=== PATIENT | female | born 1950 | race Caucasian/White ===

== ENCOUNTER → 2017-05-31 | Outpatient (CLI) | payer OTHER ==
[~2017-05-31] MED LIST: ASPIRIN PO; BENAZEPRIL PO; CELEXA; CELEXA PO; DARVOCET-N 1001 TAB PO; IMITREX; LEXAPRO PO; LIPITOR PO; LORTAB 7.5-5001 TAB PO; MOBIC PO; PHENERGAN PO; ZANTAC; ZANTAC PO
--- NOTE | ~2017-05-31 | BD1 ---
[facility] A Service of [facility] & [facility] / [facility] RADIOLOGY TEXT RESULTS PATIENT: SOFI BECK [facility] : 51 UNIT #: [id number] AGE: [address]: Vanessa Jaime MD SEX: F ORDER DR: [id number] [facility] [address] [place], [place] [address] [id number] O MR#: [id number] Acc #: [id number] NAME: SOFI BECK : 1950 SEX: F STUDY DATE/TIME: 05/31/2017 14:59 [facility] ROOM: STUDY DESCRIPTION: BD Dexa Bone Dens 1+ Site Attending Physician: Vanessa Jaime M.D. Referring Physician: Vanessa Jaime M.D. Ordering Physician: Vanessa Jaime M.D. Primary Care Physician: Vanessa Jaime M.D. MEDICAL IMAGING REPORT This report is preliminary unless electronic signature is present EXAM DXA scan, 05/31/2017 HISTORY Status post menopause with no hormone replacement therapy. Osteopenia. Hysterectomy with removal of both ovaries. Smoking history for 10 years. Family history of osteoporosis in sister. FINDINGS Bone mineral density in the lumbar spine from L1 through L4 is 0.765 g/cm2 which is 2.6 standard deviations below the mean when compared to the young adult reference population which is characteristic of osteoporosis. This is 0.8 standard deviations above the mean when compared to the age-matched population. Bone mineral density in the left femoral neck was 0.653 g/cm2 which is 1.8 standard deviations below the mean when compared to the young adult reference population which is characteristic of osteoporosis. This is 0.2 standard deviations below the mean when compared to the age-matched population. IMPRESSION Bone mineral density in the lumbar spine characteristic of osteoporosis and within the left hip characteristic of osteopenia. Dictated by... Jonh De Leon M.D. THIS IS AN ELECTRONICALLY VERIFIED REPORT Jonh De Leon M.D. at 06/01/2017 7:25 AM YAMEL/javier TD: 05/31/2017 23:09 [facility] A Service of [facility] & [facility] / [facility] RADIOLOGY TEXT RESULTS PATIENT: SOFI BECK [id number] [birth year] UNIT #: [id number] AGE: [address]: Vanessa Jaime MD SEX: F ORDER DR: JOB #: [id number] MEDICAL IMAGING REPORT Page 1 of 1 COPY
--- NOTE | ~2017-05-31 | MY29 ---
[facility] A Service of [facility] & [facility] RADIOLOGY TEXT RESULTS PATIENT: SOFI BECK LOCATION: [facility] : 52 UNIT #: [id number] AGE: [address]: Vanessa Jaime MD SEX: F ORDER DR: [id number] [facility] [address] [place], [place] [address] [id number] O MR#: [id number] Acc #: [id number] NAME: SOFI BECK : 1950 SEX: F STUDY DATE/TIME: 05/31/2017 15:17 UNIT: [facility] ROOM: STUDY DESCRIPTION: MY HEATH SCREENING W/ CAD BILAT Attending Physician: Vanessa Jaime M.D. Referring Physician: Vanessa Jaime M.D. Ordering Physician: Vanessa Jaime M.D. Primary Care Physician: Vanessa Jaime M.D. MEDICAL IMAGING REPORT This report is preliminary unless electronic signature is present EXAM Digital screening mammogram, 05/31/2017, [facility]. HISTORY 66-year-old woman positive family history, aunt, postmenopausal. Annual screen. COMPARISON Comparison mammograms, 07/19/2011, 08/04/2012, 02/11/2015. TECHNIQUE Digital imaging of each breast was completed utilizing screening protocol. Review includes FDA-approved CAD device. FINDINGS Breast parenchyma is partially fatty replaced. Small nodular parenchymal pattern occupies the anterior thirds of both breasts. Subareolar duct prominence is noted bilaterally and stable. I see no suspicious mass characteristics. There are no interval-occurring microcalcifications and no suspicious architectural deformity. IMPRESSION Stable benign mammogram. Annual screening recommended. Patients over the age of 40 are entered into a reminder system with target due date for the next mammogram. A result letter will also be sent to the patient. BIRADS: 2 Benign finding. [facility] A Service of [facility] & [facility] RADIOLOGY TEXT RESULTS PATIENT: SOFI BECK LOCATION: [facility] : 52 UNIT #: [id number] AGE: [address]: Vanessa Jaime MD SEX: F ORDER DR: Dictated by... Carroll Douglas M.D. THIS IS AN ELECTRONICALLY VERIFIED REPORT Carroll Douglas M.D. at 06/01/2017 8:18 AM ELOISE/meli TD: 05/31/2017 23:23 JOB #: [id number] MEDICAL IMAGING REPORT Page 1 of 1 COPY
== END | disposition home or self-care (01) ==
LOC: CWCC 14:38
DX: Z12.31 Encounter for screening mammogram for malignant neoplasm of breast (principal); Z13.820 Encounter for screening for osteoporosis; Z78.0 Asymptomatic menopausal state; Z80.3 Family history of malignant neoplasm of breast
CPT/HCPCS: 77080; G0202